=== PATIENT | female | born 1955 | race Caucasian/White ===

== ENCOUNTER → 2022-02-01 | Outpatient (CLI) | payer MEDICARE, OTHER | LOC: HEART CORB 09:41 | DX: I11.0 Hypertensive heart disease with heart failure (principal); I50.30 Unspecified diastolic (congestive) heart failure; R94.31 Abnormal electrocardiogram [ECG] [EKG]; R07.2 Precordial pain; I34.0 Nonrheumatic mitral (valve) insufficiency; E78.5 Hyperlipidemia, unspecified | CPT/HCPCS: 78452; A9502; J2785 ==